=== PATIENT | female | born 1965 | race Caucasian/White ===

== ENCOUNTER 2018-12-25 12:42 | Emergency (ER) | payer OTHER ==
[~2018-12-25] VITALS: Ht 160 cm; Wt 71.7 kg
--- NOTE | 2018-12-25 12:42 | NUR ---
PATIENT BIBA TO BED 5.
[2018-12-25 12:43] VITALS: BP 135/86
--- NOTE | 2018-12-25 12:46 | NUR ---
DR. SHABAZZ AT BEDSIDE EVALUATING PATIENT.
[2018-12-25] MEDS ORDERED: LAM200 PO (12:49)
[2018-12-25] MEDS ORDERED: ATI.5 PO (12:49)
[2018-12-25] MEDS ORDERED: QUET200T PO (12:49)
--- NOTE | 2018-12-25 13:17 | NUR ---
pt came into the ed by ambulance c/o si x 1 month. pt states, "cal been thinking of hurting myself for the past month." pt also states plan to hurt herself was to, "i was just going to go the bathroom with a knife and cut myself." pt is put on a 5150 hold. a &o x4. vs stable. pt states, "cal been off my meds in august for 45 days do to insuracnce issues." allergies: paroxetine pmh: bipolar
[2018-12-25 13:42] LABS: BASOPHILS % (AUTO) 0.5 % (0.0-2.0); EOSINOPHILS # (AUTO) 0.1 K/uL (0-0.4); HEMATOCRIT 43.3 % (36-48); HEMOGLOBIN 14.6 g/dL (12.0-16.0); LYMPHOCYTES # (AUTO) 1.9 K/uL (2.5-16.5); LYMPHOCYTES % (AUTO) 30.2 % (20.5-51.1); MEAN CORPUSCULAR HEMOGLOBIN 29 pg (27-31); MEAN CORPUSCULAR HGB CONC 34 g/dL (33-37); MEAN CORPUSCULAR VOLUME 87.2 fL (80-94); MONOCYTES # (AUTO) 0.6 K/uL (0.8-1.0); MONOCYTES % (AUTO) 8.8 % (1.7-9.3); NEUTROPHILS # (AUTO) 3.7 K/uL (1.8-7.7); NEUTROPHILS % (AUTO) 59.5 % (42.2-75.2); PLATELET COUNT (AUTO) 260 K/uL (140-450); RED BLOOD CELL COUNT(AUTO) 4.97 MIL/uL (4.20-5.40); RED CELL DISTRIBUTION WIDTH 13.6 % (11.6-13.7); WHITE BLOOD COUNT (AUTO) 6.3 K/uL (4.8-10.8)
[2018-12-25 13:51] LABS: BARBITURATE, URINE NEG. ng/ml (NEG <=200); BENZODIAZEPINE, URINE POS. ng/mL (NEG <=200); CANNABINOID, URINE POS. ng/mL (NEG <=50); COCAINE, URINE NEG. ng/mL (NEG <=300); OPIATE, URINE NEG. ng/mL (NEG <=2000); PHENCYCLIDINE SCREEN,URINE NEG. ng/mL (NEG <=25)
[2018-12-25 14:08] LABS: PROTHROMBIN TIME 9.3 secs (10.8-13.4)
[2018-12-25 14:10] LABS: ALBUMIN 3.8 g/dL (3.4-5.0); ANION GAP 14.2 (8-16); ASPARTATE AMINOTRANSFERASE 27 U/L (15-37); CARBON DIOXIDE 23.5 mmol/L (21-32); CHLORIDE 107 mmol/L (98-107); CREATININE 0.6 mg/dL (0.6-1.3); GFR ARICAN-AMERICAN 134 mL/min (>90); GLUCOSE 107 mg/dL (74-106); POTASSIUM 3.7 mmol/L (3.5-5.1); SODIUM SERUM 141 mmol/L (136-145); TOTAL BILIRUBIN 0.2 mg/dL (0.0-1.0); UREA NITROGEN, BLOOD 15 mg/dL (7-18)
[2018-12-25 14:12] LABS: ACETAMINOPHEN < 0.5 ug/ml (10-30); SALICYLATE < 2.8 mg/dL (2.8-20.0)
--- NOTE | 2018-12-25 16:15 | NUR ---
Called the following facilities: [facility] s/w Braulio no beds [facility] s/w Cici no beds [facility] s/w Eleanor no beds [facility] s/w Justin, no beds but ask to fax packet for possible bed if patient do not meet criteria in their ER [facility] s/w Alyce no beds [facility] s/w Damien fax packet for wait list
--- NOTE | 2018-12-25 17:58 | NUR ---
PT LAYING COMFORTABLY IN GURNEY. SITTER AT BESIDE [facility]. NO GRIMACING OR DISTRESS NOTED.
--- NOTE | 2018-12-25 18:41 | NUR ---
CALLED ACCEPTING FACILITY GIVE REPORT ON PT THATS BEING TRANSFERRED BUT THE FACILITY STATED, "WE ONLY GET REPORT WHEN TRANSPORT IS THERE TO PICK THEM UP."
--- NOTE | 2018-12-25 19:20 | NUR ---
RICHY AMBROSIO ARRIVED. CALLED FACILITY AND GAVE REPORT TO LIZA CARMEN.
[2018-12-25 19:21] VITALS: BP 129/83
--- NOTE | 2018-12-25 19:22 | NUR ---
PT LEFT FACILITY AT THIS TIME VIA [facility]
== END 2018-12-25 19:22 ==
LOC: MED 12:42
DX: R45.851 Suicidal ideations (principal); F32.9 Major depressive disorder, single episode, unspecified; Z79.899 Other long term (current) drug therapy; Z88.8 Allergy status to other drugs, medicaments and biological substances
CPT/HCPCS: 36415; 71045; 80053; 80305; 84484; 85025; 85610; 85730; 93005; 99285; G0480; G0482; Q0092